=== PATIENT | female | born 1965 | race Caucasian/White ===

== ENCOUNTER 2019-03-13 19:17 | Emergency (ER) | payer BC ==
[2019-03-13] MEDS ORDERED: CYMBALTA30 M1 PO (19:42)
[2019-03-13] MEDS ORDERED: ALTACE 5MG5 MG PO (19:42)
[2019-03-13] MEDS ORDERED: LASIX20 M1 PO (19:43)
[2019-03-13] MEDS ORDERED: CELEBREX 200MG200 MG PO (19:43)
[2019-03-13] MEDS ORDERED: KLOR-CON 1010 MEQ PO (19:43)
[2019-03-13] MEDS ORDERED: TAMOXIFEN CITRA20 MG PO (19:44)
[2019-03-13 21:19] VITALS: BP 161/78
== END 2019-03-13 21:20 | disposition home or self-care (01) ==
LOC: ED 19:17
DX: K59.00 Constipation, unspecified (principal); I10 Essential (primary) hypertension; Z85.3 Personal history of malignant neoplasm of breast; Z98.890 Other specified postprocedural states

== ENCOUNTER → 2023-09-16 | Outpatient (CLI) | payer SELFPAY ==
[~2023-09-16] MED LIST: ALTACE 5MG5 MG PO; CELEBREX 200MG200 MG PO; CYMBALTA30 M1 PO; KLOR-CON 1010 MEQ PO; LASIX20 M1 PO; TAMOXIFEN CITRA20 MG PO
[2023-09-16 13:27] LABS: CALCIUM 9.8 mg/dL (8.3-10.5)
== END ==
LOC: LAB 13:06
PROVIDERS: Family Medicine
DX: R60.0 Localized edema (principal)